=== PATIENT | female | born 1945 | race Caucasian/White ===

== ENCOUNTER 2021-06-24 20:20 | Emergency (ER) | payer MEDICARE, SELFPAY ==
[2021-06-24] VITALS (31 sets, daily range): BP systolic 116–156; BP diastolic 59–82; PULSE 88–107; RESP 14–26; TEMP 36.5; O2SAT 98–100
--- NOTE | 2021-06-24 20:45 | RT.EKG_ITS ---
APPROVED REPORT Exam: Resting ECG Reason for Exam: weakness Patient Location: E HR:91 bpm ECG Measurements Heart Rate 91 AXIS WA 204 P 74 QRSd 96 QRS 22 QT 363 T 70 QTc 448 Conclusion Sinus rhythm...normal P axis, V-rate 60- 99 Low voltage, precordial leads...precordial leads <1.0mV Physician: Rate 65, sinus rhythm, no significant ST elevations or depressions, small Q waves in 2, 3, aVF. No STEMI
--- NOTE | 2021-06-24 20:45 | DI.CT_ITS ---
Exam(s) CT CHEST PE CTA EXAM: CT CHEST PE CTA CLINICAL HISTORY: left chest and neck pain, near syncope. TECHNIQUE: Imaging Protocol: Axial CT angiography was performed with multi-slice acquisition and mu lti-planar and/or 3D reconstructions. CONTRAST MATERIAL: Intravenous: Omnipaque 350 Contrast volume:structured data in ml COMPARISON: No previous for comparison. FINDINGS: Tracheobronchial tree: Patent where visualized. Pulmonary parenchyma: No consolidation or dominant measurable mass. No architectural distortion. Depe ndent atelectasis. Pulmonary Arteries: No evidence of filling defect to suggest pulmonary emboli. Mediastinum and Malena: No dominant adenopathy or fluid collection. Visualized thyroid gland: Unremarkable. Pleura: No effusion or pneumothorax. Heart: The heart is not dilated. No coronary artery calcifications are seen. No pericardial effusion. Aorta: Thoracic aorta non-dilated. No evidence of dissection. Upper abdomen: Cholelithiasis. No biliary ductal dilatation. 4 mm hypodensity in the superior pole of the right kidney. It is too small for further characterization but likely reflects a small cyst. Soft tissues: Unremarkable. Bones: Within normal limits for the patient's age. IMPRESSION: No evidence of pulmonary embolism, thoracic aortic dissection or aneurysm. RADIATION DOSE DELIVERED: 425.02mGy.cm Total DLP DATA REPOSITORY: All CT scans at this facility are submitted to the National Radiology Data Registry (NRDR) Dose Index Registry (DIR) with the [employer] (ACR). RADIATION OPTIMIZATION: All CT scans at this facility use at least one of these dose optimization te chniques: automated exposure control; mA and/or kV adjustment per patient size (includes targeted exa ms where dose is matched to clinical indication); or iterative reconstruction.
[2021-06-24] MEDS: Normal Saline 500 ML IV (21:01)
[2021-06-24] MEDS: Lidocaine 5% Patch 1 PATCH TP (21:09)
[2021-06-24 21:10] LABS: Abs Immature Grans 0.05 10^3/uL (0.0-0.06); Absolute Basophil Count 0.06 10^3/uL (0.0-0.2); Absolute Eosinophil Count 0.24 10^3/uL (0.0-0.7); Absolute Lymphocyte Count 1.27 10^3/uL (1.2-3.4); Absolute Monocyte Count 0.66 10^3/uL (0.1-0.8); Absolute Neutrophil Count 5.38 10^3/uL (1.2-6.7); Basophils % 0.8; Eosinophils % 3.1; HCT 34.8 % (36.0-46.0); HGB 11.4 g/dL (11.2-15.7); Immature Grans % 0.7; Lymphocytes % 16.6; MCH 28.4 pg (27.0-33.0); MCHC 32.8 % (32.0-36.0); MCV 86.6 fL (80-95); MPV 8.9 fL (8.0-11.0); Monocytes % 8.6; Neutrophils % 70.2; Nucleated RBC 0 %; Platelet Count 315 10^3/uL (130-400); RBC 4.02 10^6/uL (3.93-5.22); RDW 13.3 % (11.7-14.6); RDW-SD 42.2 fL; WBC 7.66 10^3/uL (4.4-10.8)
--- NOTE | 2021-06-24 21:24 | ED.GENADUL_ITS ---
Discharge Plan Disposition Patient Disposition: HOME Condition: Good Discharge Details Clinical Impression: Light-headed, Acute hypokalemia, Hypomagnesemia, Acute UTI Primary Care Provider: None,None ED Provider: Matias Agarwal Home Meds and New Rx's Prescriptions: New ciprofloxacin HCl 500 mg tablet 500 mg PO BID 7 Days Qty: 14 RF: 0 Continued multivitamin Tablet 1 tab PO DAILY RF: 0 potassium chloride 10 mEq Capsule, Extended Release 10 meq PO DAILY RF: 0 aspirin 325 mg Tablet 325 mg PO DAILY RF: 0 losartan 25 mg Tablet 25 mg PO DAILY RF: 0 hydrochlorothiazide 12.5 mg Capsule 12.5 mg PO DAILY RF: 0 omeprazole 20 mg Capsule,Delayed Release(Dr/Ec) 20 mg PO DAILY RF: 0 montelukast 10 mg Tablet 10 mg PO DAILY RF: 0 albuterol sulfate [Ventolin HFA] 90 mcg/actuation Hfa Aerosol Inhaler 2 puff INHALATION DAILY RF: 0 budesonide-formoterol [Symbicort] 160-4.5 mcg/actuation Hfa Aerosol Inhaler 2 puff INHALATION BID RF: 0 cholecalciferol (vitamin D3) [Vitamin D3] 125 mcg (5,000 unit) Tablet 125 mcg PO DAILY RF: 0 Lumigan 0.01 % Drops 1 drp OPHTHALMIC (EYE) DAILY RF: 0 fluticasone furoate 100 mcg/actuation Blister With Device 100 mcg inhalation DAILY RF: 0 Discharge Instructions Instructions: Urinary Tract Infection in Women (ED), Hypokalemia (ED) Additional Instructions: At this time you have a few things that may have caused your mild lightheadedness. Your potassium level is slightly low, please eat foods rich in potassium like legumes, avocados, bananas. Drink plenty of fluids and stay well-hydrated. You also still have a mild urinary tract infection. We will start you on a different antibiotic called Cipro. Please take this as directed. Please drink cranberry concentrate or cranberry juice. You also have evidence of diseased vessels in your brain. There is no evidence of stroke at this time. 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 I do not think that this is the cause of your symptoms tonight however it would be beneficial to continue to take a full dose aspirin 325 mg every day. Please follow-up closely with your primary care provider in regards to this. If you notice any worsening of your symptoms, or any new symptoms such as vomiting, diarrhea, fever, chills, shortness of breath, chest pain, numbness, weakness, or fainting , please return immediately to the emergency department for reevaluation. Please follow up with your primary care provider as soon as possible for reassessment and reevaluation. As always, it was a pleasure participating in your medical care today. Medical Decision Making 75-year-old female who is visiting from [place], with a past medical history of hypertension, high cholesterol, reactive airway disease/COPD, who presents today for left neck pain and near syncope. Patient denies any history of cardiac disease. Patient states that for the last 2 weeks she has had mild pain and tightness in her left neck. She has been taking NSAIDs and muscle relaxants as needed to help with this but it is not change anything. This evening seemingly unrelated she was sitting in her chair when she developed lightheadedness and felt like she had to pass out. She had no associated chest pain, arm pain, chest tightness, bandlike sensation around the chest, or other associated symptoms. She denies pleuritic chest pain or shortness of breath. She denies any history of PE or heart attack. She is not on any exogenous estrogen. She denies any symptoms like this in the past. She states aside for the mild neck soreness which is unchanged she otherwise feels well. No other complaints at this time. No other modifying factors. No recent exertional chest pain or exertional lightheadedness. Physical exam demonstrates mild spasm of the left neck muscles, no midline C- spine tenderness, no meningeal signs whatsoever. EKG demonstrates small Q waves but is otherwise stable. Differential includes musculoskeletal spasm versus underlying mass which is less likely. Cause of the nearsyncope is unknown, but differential includes intracranial etiology, PE, cardiac dysrhythmia, or mild dehydration. We will gently rehydrate, get CT scans to evaluate for acute abnormalities, Lidoderm patch on her neck, monitor closely and reassess. 11:50 PM Patient's laboratory work-up is returned, no white count bandemia or left shift. Potassium is low at 2.8, magnesium is low at 1.4. We will repeat placed these with 40 oral potassium, 20 IV potassium, 2 g of IV magnesium. Initial troponin normal, thyroid function good. Initial EKG does show some inverted T waves but no evidence of STEMI. Urinalysis is returned positive for nitrate leuk esterase and elevated WBCs suggestive of mild urinary tract infection. Patient does admit to recently having UTI, and being on an antibiotic for it finishing a few days ago but otherwise feels fine. She does not recall the antibiotic that she was on. CT scan of the chest and neck is negative for acute process mass or other abnormality. CT scan of the brain does show a 90% high-grade stenosis of the posterior cerebral artery. This appears to be more chronic and acute, however we will contact [facility] and discussed this with them. Patient is asking to go home, and she states that she feels fine at this time. 12:07 AM Reviewed the images and case with Dr. Rivera. She suspects that this is incidental, and the stenotic lesion is not an acute cause of her symptoms. I would agree with this clinically as the patient remained without any neurologic deficit, ataxia or imbalance or other abnormality. Myself and the nurse did review with the patient her previous UTI, and did discuss what she was on before. We are unable to access her previous records, but she seems to think that it may have been Keflex based. 2 g of ceftriaxone were already given at this time. We will give a prescription for Cipro for an outpatient use. Repeat EKG is unchanged from prior EKG. No evidence of STEMI or acute change or other significant abnormality. 12:40 AM Repeat troponin normal, patient remains feeling well. Repeat neurologic exam unremarkable. Patient stable. Patient requesting to go home. We will give her home prescription for Cipro. She has been well-hydrated, electrolytes have been replaced. Discussed red flags which to return. Discussed the importance of follow-up with her family doctor in regards to her CT scan findings. Discussed the importance of continuing her baby daily aspirin. I have extensively reviewed the treatment plan and discharge instructions with the patient and their family. I have addressed all patient concerns at this time. The patient and family was made aware of what symptoms to monitor for that would warrant a return to the emergency department. Discussed the plan with the patient and family, they demonstrate verbal understanding and agreement with our assessment and plan at this time. The documentation in this chart was dictated using [employer] dictation software. Please excuse any dictation errors. EKG 20: 56 Rate 91, sinus rhythm, intervals stable. No significant ST elevation or depression. Inverted T waves in V1 and V2, no STEMI. EKG 23: 53 Rate 101, sinus tachycardia, no significant ST elevations or depressions. There continues to be a mild inverted T waves in V1 and V2, no STEMI. No significant Q waves. No acute change. EKG stable. FINDINGS: ANTERIOR CIRCULATION: Right internal carotid artery: Scattered atherosclerotic irregularities but no high-grade stenosis, occluding thrombus, dissection or aneurysm. Right middle cerebral artery: Scattered atherosclerotic irregularities but no high-grade stenosis, occluding thrombus, dissection or aneurysm. Right anterior cerebral artery: Scattered atherosclerotic irregularities but no high-grade stenosis, occluding thrombus, dissection or aneurysm. Left internal carotid artery: No high-grade stenosis, occluding thrombus, dissection or aneurysm. Left middle cerebral artery: Scattered atherosclerotic irregularities but no high-grade stenosis, occluding thrombus, dissection or aneurysm. Left anterior cerebral artery: Scattered atherosclerotic irregularities but no high-grade stenosis, occluding thrombus, dissection or aneurysm. POSTERIOR CIRCULATION: Right vertebral artery: No high-grade stenosis, occluding thrombus, dissection or aneurysm. Left vertebral artery: The distal left vertebral artery is diminutive but patent without thrombus or vessel cut off. Basilar artery: No high-grade stenosis, occluding thrombus, dissection or aneurysm. Right posterior cerebral artery: No high-grade stenosis, occluding thrombus, dissection or aneurysm. Left posterior cerebral artery: There is high-grade stenosis within the proximal left P1 segment with narrowing estimated at 90-99% as demonstrated on series 10, image 33. Brain: There is diffuse cerebral and cerebellar volume loss with prominence of the ventricles, sulci and cisterns. There are patchy periventricular white matter hypodensities consistent with remote microvascular disease. No acute ischemia is identified, although, CT is relatively insensitive within the 1st 24 hours. There is no intracranial hemorrhage, abnormal extra-axial fluid, hydrocephalus, mass, mass effect or midline shift. Cerebral ventricles: No ventriculomegaly. Bones/joints: Unremarkable. No acute fracture. Soft tissues: Unremarkable. IMPRESSION: 1. 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 2. No intracranial aneurysm. 3. Chronic age-related findings as detailed above. FINDINGS: Right common carotid artery: No high-grade stenosis, occluding thrombus, dissection or aneurysm. Right internal carotid artery: No high-grade stenosis, occluding thrombus, dissection or aneurysm. Right external carotid artery: No high-grade stenosis, occluding thrombus, dissection or aneurysm. Left common carotid artery: No high-grade stenosis, occluding thrombus, dissection or aneurysm. Left internal carotid artery: No high-grade stenosis, occluding thrombus, dissection or aneurysm. Left external carotid artery: There are atherosclerotic calcifications at the origin of the left ECA with moderate stenosis estimated at greater than 50%. Right vertebral artery: No high-grade stenosis, occluding thrombus, dissection or aneurysm. Left vertebral artery: The left vertebral artery is slightly diminutive relative to the right but remains patent from its origin to the basilar artery. Aorta: There is no aortic arch aneurysm or dissection. Soft tissues: Normal. No significant soft tissue swelling. Bones/joints: There is osseous demineralization with age-related degenerative change changes throughout the cervical spine. Lungs: The lung apices are grossly clear. IMPRESSION: 1. No high-grade stenosis, occluding thrombus, dissection or aneurysm within the neck circulation. REFERENCES: NASCET CRITERIA. The degree of internal carotid artery stenosis is based on NASCET criteria. Normal is no stenosis. Mild is less than 50% stenosis. Moderate is 50-69% stenosis. Severe is 70% to 99% stenosis. Total occlusion is no detectable patent lumen. Thank you for allowing us to participate in the care of your patient. Dictated and Authenticated by: Bimal Rivera MD 06/24/2021 11:11 PM Eastern Time ([place] & [place]) FINDINGS: Pulmonary arteries: Normal. No central pulmonary embolus Aorta: Mild atherosclerosis in the aorta and its branches. No aortic aneurysm. No aortic dissection. Lungs: Mild bilateral dependent atelectasis. Is Pleural spaces: Unremarkable. No pneumothorax. No pleural effusion. Heart: Unremarkable. No cardiomegaly. No pericardial effusion. Lymph nodes: Unremarkable. No enlarged lymph nodes. Gallbladder and bile ducts: Gallbladder appears collapsed over stones. Bones/joints: Unremarkable. No acute fracture. Soft tissues: Unremarkable. IMPRESSION: No evidence of acute disease Thank you for allowing us to participate in the care of your patient. Dictated and Authenticated by: Cortez King MD 06/24/2021 10:28 PM Eastern Time ([place] & [place]) HPI General Date/Time Provider Initiated Documentation: 06/24/21 20:34 . HPI Narrative: 75-year-old female who is visiting from [place], with a past medical history of hypertension, high cholesterol, reactive airway disease/COPD, who presents today for left neck pain and near syncope. Patient denies any history of cardiac disease. Patient states that for the last 2 weeks she has had mild pain and tightness in her left neck. She has been taking NSAIDs and muscle relaxants as needed to help with this but it is not change anything. This evening seemingly unrelated she was sitting in her chair when she developed lightheadedness and felt like she had to pass out. She had no associated chest pain, arm pain, chest tightness, bandlike sensation around the chest, or other associated symptoms. She denies pleuritic chest pain or shortness of breath. She denies any history of PE or heart attack. She is not on any exogenous estrogen. She denies any symptoms like this in the past. She states aside for the mild neck soreness which is unchanged she otherwise feels well. No other complaints at this time. No other modifying factors. No recent exertional chest pain or exertional lightheadedness. Related Data Home Medications Medication Instructions Recorded Confirmed Lumigan 1 drp OPHTHALMIC (EYE) DAILY 06/24/21 06/24/21 albuterol sulfate [Ventolin HFA] 2 puff INHALATION DAILY 06/24/21 06/24/21 aspirin 325 mg PO DAILY 06/24/21 06/24/21 budesonide-formoterol [Symbicort] 2 puff INHALATION BID 06/24/21 06/24/21 cholecalciferol (vitamin D3) 125 mcg PO DAILY 06/24/21 06/24/21 [Vitamin D3] fluticasone furoate 100 mcg INHALATION DAILY 06/24/21 06/24/21 hydrochlorothiazide 12.5 mg PO DAILY 06/24/21 06/24/21 losartan 25 mg PO DAILY 06/24/21 06/24/21 montelukast 10 mg PO DAILY 06/24/21 06/24/21 multivitamin 1 tab PO DAILY 06/24/21 06/24/21 omeprazole 20 mg PO DAILY 06/24/21 06/24/21 potassium chloride 10 meq PO DAILY 06/24/21 06/24/21 ciprofloxacin HCl 500 mg PO BID 7 Days #14 tab 06/25/21 Previous Rx's Medication Instructions Recorded ciprofloxacin HCl 500 mg PO BID 7 Days #14 tab 06/25/21 Allergies Allergy/AdvReac Type Severity Reaction Status Date / Time codeine AdvReac Nausea Unverified 06/24/21 20:35 General Stated Complaint: Nk/Back Pain SHANNON: 3 Review of Systems All systems reviewed & are unremarkable except as noted in HPI and below PFSH Social History Smoking/Tobacco Use Status: Former Tobacco Use Smoking risk assessment performed?: Yes Alcohol Intake: current Alcohol Intake frequency: holidays/special occasions only Substance use type: does not use Do you feel safe at home: Yes Do you feel safe in your relationship?: Yes Exam Narrative Exam Narrative: 1.Const: Well-nourished, Well-developed, appearing stated age 2.Eyes: PERRL, no conjunctival injection, and symmetrical lids. 3.ENT: Atraumatic external nose and ears. Moist MM. Neck: Symmetric, trachea midline, No thyromegaly. 4.CVS: +S1/S2, No murmurs or gallops. Peripheral pulses 2+ and equal in all extremities. Brisk capillary refill in all extremities. 5.RESP: Unlabored respiratory effort. Clear to auscultation bilaterally. No wheezes rales or rhonchi 6.GI: Soft, Nontender/Nondistended, No hepatosplenomegaly. No guarding or rebound. 7.MSK: Normocephalic/Atraumatic, Extremities w/o deformity or ttp No cyanosis or clubbing, Normal movement of all extremities. Left next demonstrates minimal tightness compared to the right, mild muscle spasm on the lateral aspect. No sternocleidomastoid spasm. No bruits. No distal abnormalities in the arms. Normal vascular exam distally. No mass that is palpable. 8.Skin: Warm, Dry. No rashes or lesions. 9.Neuro: lead bi developer II-XII grossly intact. Sensation grossly intact, no focal neurologic deficits. 10.Psych: (AAO) x3. Appropriate mood and affect Course Vital Signs Vital signs: Vital Signs Temperature 36.5 C 06/24/21 20:31 Pulse 94 H 06/24/21 20:31 Respiratory Rate 18 06/24/21 20:31 Blood Pressure 156/70 H 06/24/21 20:31 Pulse Oximetry 98 06/24/21 20:31 Temperature 36.5 C 06/24/21 20:31 Temperature Source Temporal Artery Scan 06/24/21 20:31 Pulse 94 H 06/24/21 20:31 Respiratory Rate 18 06/24/21 20:31 Respiratory Effort Non-Labored 06/24/21 20:37 Blood Pressure 156/70 H 06/24/21 20:31 Blood Pressure Position Sitting 06/24/21 20:31 Pulse Oximetry 98 06/24/21 20:31 Oxygen Delivery Method Room Air 06/24/21 20:31 Oxygen Flow Rate 0 06/24/21 20:31 Pain Level 5 06/24/21 20:37 Comment 06/24/21 20:31 Lab/Test Results Lab/Test Results: Laboratory Tests Range/Units 06/24/21 21:00 WBC (4.4-10.8) 10^3/uL 7.66 RBC (3.93-5.22) 10^6/uL 4.02 Hgb (11.2-15.7) g/dL 11.4 Hct (36.0-46.0) % 34.8 L MCV (80-95) fL 86.6 MCH (27.0-33.0) pg 28.4 MCHC (32.0-36.0) % 32.8 RDW (11.7-14.6) % 13.3 Plt Count (130-400) 10^3/uL 315 MPV (8.0-11.0) fL 8.9 Immature Gran % 0.7 Neutrophils % 70.2 Lymphocytes % 16.6 Monocytes % 8.6 Eosinophils % 3.1 Basophils % 0.8 Nucleated RBC % % 0 Absolute Neutrophils (1.2-6.7) 10^3/uL 5.38 Absolute Lymphocytes (1.2-3.4) 10^3/uL 1.27 Absolute Monocytes (0.1-0.8) 10^3/uL 0.66 Absolute Eosinophils (0.0-0.7) 10^3/uL 0.24 Absolute Basophils (0.0-0.2) 10^3/uL 0.06
--- NOTE | 2021-06-24 21:30 | DI.CT_ITS ---
Exam(s) CT BRAIN NECK CTA EXAM: CT BRAIN NECK CTA CLINICAL HISTORY: left neck pain, near syncope. TECHNIQUE: Imaging Protocol: Axial CT angiography was performed with multi-slice acquisition and mu lti-planar and/or 3D reconstructions. CONTRAST MATERIAL: Intravenous: Omnipaque 350 Contrast volume:85 mL COMPARISON: No exams were available for comparison FINDINGS: CT Head W/O and W: Ventricles and Extra axial spaces: Normal in size and morphology for the patient's age. Hemorrhage: None. Cerebral parenchyma: No acute territorial infarct. There are areas of decreased attenuation in the w ephraim matter most consistent with chronic microvascular ischemic disease. Midline shift: None. Brainstem/Cerebellum: Normal. Calvarium: Normal. Visualized Paranasal sinuses/Mastoids: There is a mucous retention cyst or polyp in the left maxillar y sinus. There is opacification of a few ethmoid air cells. The remaining visualized paranasal sinu ses and mastoid air cells are clear. Soft Tissues: Unremarkable. Enhancement: Unremarkable. CTA Neck W: Common Carotid: Right: No dissection, occlusion or significant stenosis. Left: No dissection, occlusion or significant stenosis. Atherosclerosis. External Carotid: Right: No occlusion or significant stenosis. Left: No occlusion or significant stenosis. Atherosclerosis at the origin of the left external carot id artery with approximately 50 percent stenosis. Internal Carotid: Right: No dissection, occlusion or significant stenosis. Left: No dissection, occlusion or significant stenosis. Vertebral Artery: Right: No dissection, occlusion or significant stenosis. Dominant right vertebral artery. Left: No dissection, occlusion or significant stenosis. Diminutive left vertebral artery. Lung Apices: Normal. Bones: Moderate multilevel degenerative changes in the cervical spine. Soft Tissues: Normal. CTA Brain W: Internal Carotid Arteries: Petrous: Normal. Cavernous: Normal. Cerebral: Normal. Anterior Cerebral Arteries: Right: No aneurysm, occlusion or significant stenosis. Left: No aneurysm, occlusion or significant stenosis. Middle Cerebral Arteries: Right: No aneurysm, occlusion or significant stenosis. Left: No aneurysm, occlusion or significant stenosis. Posterior cerebral Arteries: Right: No aneurysm, occlusion or significant stenosis. Left: No aneurysm, occlusion or significant stenosis. The left P1 segment is diminutive. It does ap pear patent. No atherosclerotic disease is present. There is a left posterior communicating artery which also supplies the posterior cerebral artery. These findings are consistent with origin o f the posterior cerebral artery which is a common variant. Vertebral Arteries: Right: No aneurysm, occlusion or significant stenosis. Left: No aneurysm, occlusion or significant stenosis. Basilar Artery: No aneurysm, occlusion or significant stenosis. IMPRESSION: 1. No occlusion or significant stenosis on the CT angiography of the head. 2. 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 3. Unremarkable noncontrast CT Head. 4. No occlusion or significant stenosis on the CT angiography of the neck. RADIATION DOSE DELIVERED: 1,846.27mGy.cm Total DLP DATA REPOSITORY: All CT scans at this facility are submitted to the National Radiology Data Registry (NRDR) Dose Index Registry (DIR) with the [employer] (ACR). RADIATION OPTIMIZATION: All CT scans at this facility use at least one of these dose optimization te chniques: automated exposure control; mA and/or kV adjustment per patient size (includes targeted exa ms where dose is matched to clinical indication); or iterative reconstruction.
[2021-06-24 21:32] LABS: ALT 19 U/L (14-59); AST 15 U/L (15-37); Albumin 3.3 g/dL (3.4-5.0); Alkaline Phosphatase 67 U/L (46-116); Anion Gap 9.7 mmol/L (3-11); BUN 12 mg/dL (7-18); Bilirubin, Total 0.3 mg/dL (0.2-1.0); CO2 25.3 mmol/L (21.0-32.0); Calcium 8.6 mg/dL (8.5-10.1); Chloride 100 mmol/L (98-107); Estimated GFR 54.35 (mL/min/1.73m2); Glucose 159 mg/dL (74-106); Sodium 135 mmol/L (136-145); TSH (W/Ref FT4) 2.92 uIU/mL (0.36-3.74); Total Protein 6.9 g/dL (6.4-8.2); Troponin I < 0.05 ng/mL (<0.06)
[2021-06-24 21:34] LABS: Lipase 99 U/L (73-393)
[2021-06-24 21:57] LABS: Magnesium 1.4 mg/dL (1.8-2.4)
--- NOTE | 2021-06-24 22:17 | NUR.NOTE ---
Patient returns from DINursing Note:
[2021-06-24] MEDS: Potassium Chloride 20 MEQ TABCR 40 MEQ PO (22:18)
[2021-06-24] MEDS: POTASSIUM CHLORIDE 20 MEQ/100 ML BAG 50 MEQ IVPB (22:18)
[2021-06-24] MEDS: Omnipaque 350 MG/ML 50 ML BTL IJ (22:20)
[2021-06-24] MEDS: Omnipaque 350 MG/ML 100 ML BTL IJ (22:20)
--- NOTE | 2021-06-24 22:29 | DI.VRAD_ITS ---
PROCEDURE INFORMATION: Exam: CTA Chest With Contrast Exam date and time: 06/24/2021 10:06 PM Age: 75 years old Clinical indication: Left-sided and other: L neck; Patient HX: L chest and neck pain, near syncope TECHNIQUE: Imaging protocol: Computed tomographic angiography of the chest with contrast. 3D rendering (Not supervised by radiologist): MIP and/or 3D reconstructed images were created by the technologist. COMPARISON: CT BRAIN NECK CTA 06/24/2021 9:48 PM FINDINGS: Pulmonary arteries: Normal. No central pulmonary embolus Aorta: Mild atherosclerosis in the aorta and its branches. No aortic aneurysm. No aortic dissection. Lungs: Mild bilateral dependent atelectasis. Is Pleural spaces: Unremarkable. No pneumothorax. No pleural effusion. Heart: Unremarkable. No cardiomegaly. No pericardial effusion. Lymph nodes: Unremarkable. No enlarged lymph nodes. Gallbladder and bile ducts: Gallbladder appears collapsed over stones. Bones/joints: Unremarkable. No acute fracture. Soft tissues: Unremarkable. IMPRESSION: No evidence of acute disease Dictated and Authenticated by: Cortez King MD. Ordering:RENETTA Salcedo MD
--- NOTE | 2021-06-24 23:11 | DI.VRAD_ITS ---
PROCEDURE INFORMATION: Exam: CT Angiography Head With Contrast, Arteriography Exam date and time: 06/24/2021 9:37 PM Age: 75 years old Clinical indication: Other: L neck pain, near syncope TECHNIQUE: Imaging protocol: Computed tomography angiography of the head with contrast. Exam focused on the arteries. 3D rendering (Not supervised by radiologist): MIP and/or 3D reconstructed images were created by the technologist. COMPARISON: No relevant prior studies available. FINDINGS: ANTERIOR CIRCULATION: Right internal carotid artery: Scattered atherosclerotic irregularities but no high-grade stenosis, occluding thrombus, dissection or aneurysm. Right middle cerebral artery: Scattered atherosclerotic irregularities but no high-grade stenosis, occluding thrombus, dissection or aneurysm. Right anterior cerebral artery: Scattered atherosclerotic irregularities but no high-grade stenosis, occluding thrombus, dissection or aneurysm. Left internal carotid artery: No high-grade stenosis, occluding thrombus, dissection or aneurysm. Left middle cerebral artery: Scattered atherosclerotic irregularities but no high-grade stenosis, occluding thrombus, dissection or aneurysm. Left anterior cerebral artery: Scattered atherosclerotic irregularities but no high-grade stenosis, occluding thrombus, dissection or aneurysm. POSTERIOR CIRCULATION: Right vertebral artery: No high-grade stenosis, occluding thrombus, dissection or aneurysm. Left vertebral artery: The distal left vertebral artery is diminutive but patent without thrombus or vessel cut off. Basilar artery: No high-grade stenosis, occluding thrombus, dissection or aneurysm. Right posterior cerebral artery: No high-grade stenosis, occluding thrombus, dissection or aneurysm. Left posterior cerebral artery: There is high-grade stenosis within the proximal left P1 segment with narrowing estimated at 90-99% as demonstrated on series 10, image 33. Brain: There is diffuse cerebral and cerebellar volume loss with prominence of the ventricles, sulci and cisterns. There are patchy periventricular white matter hypodensities consistent with remote microvascular disease. No acute ischemia is identified, although, CT is relatively insensitive within the 1st 24 hours. There is no intracranial hemorrhage, abnormal extra-axial fluid, hydrocephalus, mass, mass effect or midline shift. Cerebral ventricles: No ventriculomegaly. Bones/joints: Unremarkable. No acute fracture. Soft tissues: Unremarkable. IMPRESSION: 1. 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 2. No intracranial aneurysm. 3. Chronic age-related findings as detailed above. PROCEDURE INFORMATION: Exam: CT Angiography Neck With Contrast Exam date and time: 06/24/2021 9:37 PM Age: 75 years old Clinical indication: Other: L neck pain, near syncope TECHNIQUE: Imaging protocol: Computed tomography angiography of the neck with contrast. 3D rendering (Not supervised by radiologist): MIP and/or 3D reconstructed images were created by the technologist. COMPARISON: No relevant prior studies available. FINDINGS: Right common carotid artery: No high-grade stenosis, occluding thrombus, dissection or aneurysm. Right internal carotid artery: No high-grade stenosis, occluding thrombus, dissection or aneurysm. Right external carotid artery: No high-grade stenosis, occluding thrombus, dissection or aneurysm. Left common carotid artery: No high-grade stenosis, occluding thrombus, dissection or aneurysm. Left internal carotid artery: No high-grade stenosis, occluding thrombus, dissection or aneurysm. Left external carotid artery: There are atherosclerotic calcifications at the origin of the left ECA with moderate stenosis estimated at greater than 50%. Right vertebral artery: No high-grade stenosis, occluding thrombus, dissection or aneurysm. Left vertebral artery: The left vertebral artery is slightly diminutive relative to the right but remains patent from its origin to the basilar artery. Aorta: There is no aortic arch aneurysm or dissection. Soft tissues: Normal. No significant soft tissue swelling. Bones/joints: There is osseous demineralization with age-related degenerative change changes throughout the cervical spine. Lungs: The lung apices are grossly clear. IMPRESSION: 1. No high-grade stenosis, occluding thrombus, dissection or aneurysm within the neck circulation. REFERENCES: NASCET CRITERIA. The degree of internal carotid artery stenosis is based on NASCET criteria. Normal is no stenosis. Mild is less than 50% stenosis. Moderate is 50-69% stenosis. Severe is 70% to 99% stenosis. Total occlusion is no detectable patent lumen. Dictated and Authenticated by: Bimal Rivera MD. Ordering:RENETTA Salcedo MD
[2021-06-24 23:13] LABS: Bilirubin Negative (Negative); Blood Small (Negative); Clarity Sl Cloudy (Clear); Glucose Negative (Negative); Ketones Negative (Negative); Leukocyte Esterase Moderate (Negative); Nitrite Positive (Negative); Specific Gravity 1.015 (1.005-1.025); Urobilinogen 0.2 EU/dL (Up TO 0.2)
[2021-06-24 23:20] LABS: Bacteria Few HPF (Negative); C & S Indicated? Yes; Casts Negative LPF (Negative); Crystals Negative HPF (Negative); Epithelial Cells Few HPF (Negative); Mucus Negative (Negative)
[2021-06-24] MEDS: cefTRIAXone 2 GM/50 ML BAG IVPB (23:37)
--- NOTE | 2021-06-24 23:45 | RT.EKG_ITS ---
APPROVED REPORT Exam: Resting ECG Reason for Exam: lightheaded Patient Location: E HR:101 bpm ECG Measurements Heart Rate 101 AXIS HI 212 P 73 QRSd 84 QRS 11 QT 353 T 63 QTc 457 Conclusion Sinus tachycardia...rate> 99 Borderline prolonged HI interval...HI >207, V-rate 91-120 Low voltage, precordial leads...precordial leads <1.0mV Physician: Rate 101, sinus tachycardia, no significant ST elevations or depressions. There continues to be a mild inverted T waves in V1 and V2, no STEMI. No significant Q waves. No acute change. EK G stable.
[2021-06-25] VITALS (15 sets, daily range): BP systolic 113–143; BP diastolic 68–88; PULSE 95–111; RESP 14–20; TEMP 36.4; O2SAT 96–99
[2021-06-25 00:07] LABS: Troponin I < 0.05 ng/mL (<0.06)
[2021-06-25] MEDS: MAGNESIUM SULFATE 2 GM/50 ML BAG IVPB (00:17)
--- NOTE | 2021-06-25 00:48 | NUR.NOTE ---
Up to bedside commode with stand by assist. Tolerates movement well.Nursing Note:
[2021-06-29 13:43] LABS: Potassium 2.8 mmol/L (3.5-5.1)
== END 2021-06-25 01:35 | disposition home or self-care (01) ==
PROVIDERS: Emergency Provider Student in an Organized Health Care Education/Training Program
DX: E87.6 Hypokalemia (principal); E83.42 Hypomagnesemia; N39.0 Urinary tract infection, site not specified; B96.20 Unspecified Escherichia coli [E. coli] as the cause of diseases classified elsewhere; M54.2 Cervicalgia; R90.89 Other abnormal findings on diagnostic imaging of central nervous system; R00.0 Tachycardia, unspecified; Z87.440 Personal history of urinary (tract) infections
CPT/HCPCS: 36415; 70496; 70498; 71275; 80053; 83690; 87077; 93005; 96361; 96365; 96366; 96368; 96375; 99285; 81003; 81015; 83735; 84443; 84484; 85025; 87086; 87186; 93010; J3480; J3490; Q9967